=== PATIENT | male | born 1965 | race Caucasian/White ===

== ENCOUNTER 2017-02-16 05:19 | Day surgery (SDC) | payer OTHER ==
[~2017-02-16] VITALS: Ht 170.2 cm; Wt 108.9 kg
[~2017-02-16 05:19] MED LIST: ADVIL200 MG PO
[2017-02-16 06:36] VITALS: BP 125/72
[2017-02-16 07:00] VITALS: BP 125/72
[2017-02-16 09:35] VITALS: BP 128/77
[2017-02-16 10:10] VITALS: BP 114/68
== END 2017-02-16 10:18 | disposition home or self-care (01) ==
LOC: SDC 05:19
DX: H33.42 Traction detachment of retina, left eye (principal); H43.392 Other vitreous opacities, left eye; I44.0 Atrioventricular block, first degree; R00.1 Bradycardia, unspecified; F17.210 Nicotine dependence, cigarettes, uncomplicated; Z82.49 Family history of ischemic heart disease and other diseases of the circulatory system; Z82.5 Family history of asthma and other chronic lower respiratory diseases; Z83.3 Family history of diabetes mellitus; Z81.8 Family history of other mental and behavioral disorders
CPT/HCPCS: J0690; J1100; J1120; J1885; J2250; J2795; J3010; J3300

== ENCOUNTER 2017-03-13 09:38 | Day surgery (SDC) | payer OTHER ==
[~2017-03-13] VITALS: Ht 170.2 cm; Wt 108.9 kg
[~2017-03-13 09:38] MED LIST changes: +LIPITOR20 MG PO; +METHADONE10 MG PO
[2017-03-13 10:08] VITALS: BP 122/77
[2017-03-13 14:58] VITALS: BP 130/67
[2017-03-13 15:25] VITALS: BP 132/70
== END 2017-03-13 15:30 | disposition home or self-care (01) ==
LOC: SDC 09:38
DX: H35.372 Puckering of macula, left eye (principal); E78.5 Hyperlipidemia, unspecified; H53.9 Unspecified visual disturbance; F17.210 Nicotine dependence, cigarettes, uncomplicated; Z82.49 Family history of ischemic heart disease and other diseases of the circulatory system; Z83.3 Family history of diabetes mellitus; Z82.5 Family history of asthma and other chronic lower respiratory diseases; I44.0 Atrioventricular block, first degree
CPT/HCPCS: J0690; J1100; J1120; J1885; J2795; J3010; J3300